=== PATIENT | female | born 1960 | race Hispanic/Latino ===

== ENCOUNTER 2022-09-28 21:08 | Emergency (ER) | payer BC, SELFPAY ==
[~2022-09-28] VITALS: Ht 139.7 cm; Wt 52.6 kg
[2022-09-29 01:24] VITALS: BP 150/73
== END 2022-09-29 01:44 | disposition home or self-care (01) ==
LOC: EDH 21:08
DX: F43.0 Acute stress reaction (principal); I10 Essential (primary) hypertension
CPT/HCPCS: 99281